=== PATIENT | male | born 1980 | race Caucasian/White ===

== ENCOUNTER 2025-02-15 23:19 | Emergency (ER) | payer OTHER ==
[~2025-02-15] VITALS: Ht 170.2 cm; Wt 72.7 kg
[2025-02-15 23:34] VITALS: BP 117/76; PULSE 86; RESP 20; TEMP 98.4; O2SAT 100
[2025-02-16 00:01] LABS: COVID AG,FIA SOURCE NASAL SWAB
[2025-02-16 00:03] LABS: PLATELET COUNT (AUTO) 267 K/uL (150-450); RED BLOOD CELL COUNT(AUTO) 4.50 MIL/uL (4.50-5.90); RED CELL DISTRIBUTION WIDTH 14.0 % (11.5-14.5); WHITE BLOOD COUNT (AUTO) 7.1 K/uL (4.5-11.0)
[2025-02-16 00:12] LABS: APPEARANCE,URINE CLEAR (CLEAR); GLUCOSE, URINE (UA) NEGATIVE (NEGATIVE); LEUKOCYTE ESTERASE ,URINE NEGATIVE (NEGATIVE); NITRATE,URINE NEGATIVE (NEGATIVE); OCCULT BLOOD,URINE NEGATIVE (NEGATIVE); PH,URINE DRUG SCREEN 5.5 (5.0-8.0); SPECIFIC GRAVITIY, URINE 1.029 (1.003-1.030)
[2025-02-16 00:12] LABS: CALCIUM, TOTAL 9.2 mg/dL (8.8-10.5); CREATININE 1.00 mg/dL (0.60-1.30); GLOMERULAR FILTR. RATE CALC > 60 mL/min (>60); GLUCOSE,RANDOM 103 mg/dL (70-110); SODIUM SERUM 137 mmol/L (136-145); UREA NITROGEN, BLOOD 24 mg/dL (7-18)
[2025-02-16 00:19] LABS: AMPHET/METH SCREEN,URINE POSITIVE (NEGATIVE); BARBITURATE SCREEN, URINE NEGATIVE (NEGATIVE); CANNABINOID SCREEN,URINE POSITIVE (NEGATIVE); COCAINE SCREEN,URINE POSITIVE (NEGATIVE); METHADONE SCREEN, URINE NEGATIVE (NEGATIVE)
[2025-02-16 00:24] LABS: ALCOHOL, URINE DRUG SCREEN NEGATIVE (NEGATIVE)
[2025-02-16 00:28] LABS: SARS-COV2 (COVID) ANTIGEN,FIA Negative (Negative)
== END 2025-02-16 04:04 | disposition home or self-care (01) ==
LOC: EMS 23:19
DX: F15.10 Other stimulant abuse, uncomplicated (principal); F14.10 Cocaine abuse, uncomplicated; F16.10 Hallucinogen abuse, uncomplicated; L98.9 Disorder of the skin and subcutaneous tissue, unspecified; Z20.822 Contact with and (suspected) exposure to COVID-19
CPT/HCPCS: 99283; 87426; 80048; 81003; 85025; 36415; 80307; G0480

== ENCOUNTER 2025-03-01 03:08 | Inpatient (IN) | payer MEDICAID, OTHER ==
[~2025-03-01] VITALS: Ht 170.2 cm; Wt 72.6 kg
[2025-03-01] MEDS: LORazepam 2 MG/ML VIAL IM ONE (03:41)
[2025-03-01 03:57] LABS: PLATELET COUNT (AUTO) 221 K/uL (150-450); RED BLOOD CELL COUNT(AUTO) 4.40 MIL/uL (4.50-5.90); RED CELL DISTRIBUTION WIDTH 13.4 % (11.5-14.5); WHITE BLOOD COUNT (AUTO) 7.7 K/uL (4.5-11.0)
[2025-03-01 04:10] LABS: CALCIUM, TOTAL 9.0 mg/dL (8.8-10.5); CREATININE 1.3 mg/dL (0.60-1.30); GLOMERULAR FILTR. RATE CALC 59.0 mL/min (>60); GLUCOSE,RANDOM 115.0 mg/dL (70-110); SODIUM SERUM 139.0 mmol/L (136-145); UREA NITROGEN, BLOOD 26.0 mg/dL (7-18)
[2025-03-01 05:22] LABS: COVID AG,FIA SOURCE NASAL SWAB
[2025-03-01 05:41] LABS: SARS-COV2 (COVID) ANTIGEN,FIA Negative (Negative)
[2025-03-01 09:10] VITALS: O2SAT 98
[2025-03-01] MEDS ORDERED: ONDANSETRON 4 MG TABLET PO PRN (12:30)
[2025-03-01] MEDS ORDERED: MAGNESIUM HYDROXIDE SUSPENSION 30 ML UDCUP PO PRN (12:30)
[2025-03-01] MEDS ORDERED: ALBUTEROL SULFATE HFA 90 MCG/PUFF 8 GM INHALER IH PRN (12:30)
[2025-03-01] MEDS ORDERED: BENZOCAINE/MENTHOL [CEPACOL] LOZENGE PO PRN (12:30)
[2025-03-01] MEDS ORDERED: ACETAMINOPHEN 325 MG TABLET PO PRN (12:30)
[2025-03-01] MEDS ORDERED: PETROLATUM,WHITE 28 GM JELLY TP PRN (12:30)
[2025-03-01] MEDS ORDERED: MAG HYDROX/ALUMINUM HYD/SIMETH ES 30 ML SUSPENSION UDCUP PO PRN (12:30)
[2025-03-01] MEDS ORDERED: BACITRACIN 28 GM OINTMENT TP PRN (12:30)
[2025-03-01] MEDS ORDERED: OMEPRAZOLE 20 MG CAPSULE PO PRN (12:30)
[2025-03-01] MEDS ORDERED: DOCUSATE SODIUM 100 MG CAPSULE PO PRN (12:30)
[2025-03-01 12:57] VITALS: BP 107/81; PULSE 73; RESP 16; TEMP 97.3; O2SAT 97
[2025-03-01] MEDS: IBUPROFEN 600 MG TABLET PO PRN (13:03)
[2025-03-01 14:03] VITALS: RESP 16; O2SAT 97
[2025-03-01 20:08] VITALS: BP 100/66; PULSE 70; RESP 18; TEMP 97.7; O2SAT 99
[2025-03-02 08:14] VITALS: BP 124/82; PULSE 70; RESP 17; TEMP 98.4; O2SAT 100
[2025-03-02 08:39] LABS: PLATELET COUNT (AUTO) 208 K/uL (150-450); RED BLOOD CELL COUNT(AUTO) 4.54 MIL/uL (4.50-5.90); RED CELL DISTRIBUTION WIDTH 13.6 % (11.5-14.5); WHITE BLOOD COUNT (AUTO) 5.3 K/uL (4.5-11.0)
[2025-03-02 08:59] LABS: ASPARTATE AMINOTRANSFERASE 63 U/L (15-37); CALCIUM, TOTAL 8.2 mg/dL (8.8-10.5); CHOL/HDL RATIO 3.1 (4.2-7.3); CREATININE 0.87 mg/dL (0.60-1.30); GLOMERULAR FILTR. RATE CALC > 60 mL/min (>60); GLUCOSE,RANDOM 81 mg/dL (70-110); LDL CHOL (CALC.) 86 mg/dL (0-130); SODIUM SERUM 137 mmol/L (136-145); TOTAL PROTEIN, SERUM 7.4 g/dL (6.4-8.2); UREA NITROGEN, BLOOD 23 mg/dL (7-18)
[2025-03-02] MEDS: LOPERAMIDE HCL 2 MG CAPSULE PO PRN (10:43)
[2025-03-02 20:10] VITALS: BP 133/81; PULSE 98; RESP 20; TEMP 98; O2SAT 100
[2025-03-02] MEDS: ZOLPIDEM TARTRATE 10 MG TABLET PO PRN (20:42)
[2025-03-03 08:19] VITALS: BP 113/73; PULSE 65; RESP 17; TEMP 97.6; O2SAT 98
[2025-03-03] MEDS: NICOTINE 21 MG/24 HOUR PATCH TD SCH (08:35)
[2025-03-03 20:10] VITALS: BP 118/84; PULSE 89; RESP 19; TEMP 98.4; O2SAT 100
[2025-03-04 00:06] LABS: HEPATITIS C AB (EIA) Reactive (Non Reactive)
[2025-03-04 08:26] VITALS: BP 116/79; PULSE 71; RESP 16; TEMP 98.6; O2SAT 99
[2025-03-04] MEDS ORDERED: RISP-31 PO (14:59)
[2025-03-06 16:07] LABS: HEPATITIS C RNA,LOG 10 7.100; HEPATITIS C RNA,QNT 12600000 IU/mL; HEPATITIS C RT-PCR,QNT See Final Results IU/mL
== END 2025-03-04 17:10 | disposition home or self-care (01) | DRG 750 ==
LOC: EMS 03:10 → B2S 09:33
PROVIDERS: ADMIT Psychiatry & Neurology Psychiatry; ATTEND Psychiatry & Neurology Psychiatry
DX: F20.9 Schizophrenia, unspecified (principal); R45.851 Suicidal ideations; F10.10 Alcohol abuse, uncomplicated; J44.9 Chronic obstructive pulmonary disease, unspecified; Z20.822 Contact with and (suspected) exposure to COVID-19; F15.10 Other stimulant abuse, uncomplicated; F14.10 Cocaine abuse, uncomplicated; F12.10 Cannabis abuse, uncomplicated; Y90.9 Presence of alcohol in blood, level not specified; F41.9 Anxiety disorder, unspecified; G47.00 Insomnia, unspecified; K59.00 Constipation, unspecified; I10 Essential (primary) hypertension
CPT/HCPCS: 71101; 80048; 80053; 80061; 83036; 84436; 84443; 85025; 86803; 87081; 87340; 87522; 96372; 99285; G0480; J1200; J1630; J2060